=== PATIENT | male | born 1965 | race Caucasian/White ===

== ENCOUNTER 2021-12-27 13:08 | Inpatient (IN) | payer MEDICAID, SELFPAY ==
[2021-12-27 13:09] VITALS: BP 98/68; PULSE 89; RESP 18; TEMP 36.6; O2SAT 99; BMI 25.7
[2021-12-27 13:24] VITALS: BP 101/69; PULSE 80; RESP 16; RESP 18; O2SAT 96
--- NOTE | 2021-12-27 13:39 | EX.ED.SAOD ---
HPI History of Present Illness Chief Complaint: Substance Abuse Detail of Chief Complaint: Alcohol use for 40 years with 20-year sobriety that ended 15 years ago Informant: patient Onset/Context/Timing Onset: - (Patient has been drinking over the past 15 years) Context: Gradual Onset Timing: Continuous Quality: Multiple cans of beer with 1 to 2 pints of fireball Location: Not applicable Current Severity: Severe Maximum Severity: Severe Worsened by: Nothing specific Relieved by: Nothing Associated Symptoms Associated Symptoms: Positive for tremor (Patient has history of essential tremor.) and palpatations (When he cuts down on his drinking); Negative for vomiting*, diarrhea*, fever*, rash*, seizure, trauma, sex for drugs*, suicidal ideation, homicidal ideation or *HIV Risk Factors:Consider testing if last test > 6 months Narrative Narrative: Patient is a 56-year-old male. His niece works at [employer]. His knees recommended that he come to [place] for treatment of his alcoholism. He states he was sober for approximately 20 years. Resumed drinking 15 years ago. He drinks heavily. His last drink was on his way to the hospital. He denies headache, visual, ocular auditory symptoms. He denies trouble with speech or swallowing. He denies cardiac respiratory symptoms. He states his stomach feels queasy he denies vomiting or diarrhea. He does have an essential tremor. Tremors made worse when he drinks more. He denies blood in his urine. He denies black or maroon-colored stool. He does not bruise easily. He does have history of hypertension, and is on muscle relaxant for hip pain. He does admit to smoking. He understands he is not able to smoke at the hospital. Prior similar symptoms: Yes Recent Illness/Hospitalization: No [facility] Medical History Acute alcoholic pancreatitis Home Medications methocarbamol 500 mg tablet 500 mg PO BID PRN MUSCLE RELAXER 10/17/15 [History Last Taken 10/24/15 06:30] acetaminophen 325 mg tablet (Tylenol) 650 mg PO Q6H PRN PRN Pain 14 days 10/25/15 [Rx Last Taken Unknown] celecoxib 200 mg capsule 200 mg PO BID ##30 10/25/15 [Rx Last Taken Unknown] enoxaparin 40 mg/0.4 mL subcutaneous syringe 40 mg subcut DAILY@0600 ##20 10/25/15 [Rx Last Taken Unknown] sennosides 8.6 mg-docusate sodium 50 mg tablet (Stool Softener-Stimulant Laxative) 2 tab PO BID ##60 10/25/15 [Rx Last Taken Unknown] tramadol 50 mg tablet 50 - 100 mg PO Q6H PRN PRN Pain ##90 10/25/15 [Rx Last Taken Unknown] Allergy/AdvReac Type Severity Reaction Status Date / Time prednisone AdvReac Nausea/Vom/ Verified 12/27/21 13:11 Diarrhea Surgical History no surgical history no surgical history Social History (Updated 12/27/21 @ 13:[address] Jayro Hinton MD) household members: none Smoking Status: Heavy Smoker (>10/day) alcohol intake: current alcohol intake frequency: 3 or more drinks per day substance use type: does not use ROS ROS ED Constitutional Constitutional ED: Reports sweats; Denies chills, fever(s), subjective or weight loss Eyes Eyes: Denies blurry vision, change in vision or diplopia ENT ENT ED: Denies ear pain, rhinorrhea or sore throat Cardiovascular Cardiovascular: Reports palpitations and racing heartbeat; Denies chest pain, orthopnea or paroxysmal nocturnal dyspnea Respiratory/Chest Respiratory/Chest: Denies cough, dyspnea, dyspnea on exertion, orthopnea or paroxysmal nocturnal dyspnea Gastrointestinal Gastrointestinal: Reports abdominal pain and nausea; Denies constipation, diarrhea, melena or vomiting Genitourinary Genitourinary ED: Denies dysuria or urinary frequency Musculoskeletal Musculoskeletal: Reports other Details: He complains of right hip pain. ; Denies arthralgias, back pain, myalgias or neck pain Integumentary Denies Abrasions or rash Neurologic Neurologic: Denies headache(s), paresthesias or weakness Psychiatric Psychiatric: Reports anxiety; Denies depression or suicidal ideation Endocrine Endocrinology: Denies cold intolerance, heat intolerance, polydipsia or polyphagia Hematologic/Lymphatic Hematologic/Lymphatic: Denies easy bleeding or easy bruising EXAM Physical Exam Narrative Exam Narrative: Patient appears older than reported age. Const Vital Signs: 12/27/21 13:09 12/27/21 13:24 12/27/21 13:24 Temperature 98 F Temperature Source Temporal Pulse Rate 89 80 80 Respiratory Rate 18 16 18 Blood Pressure 98/68 101/69 101/69 Blood Pressure Mean 78 79 79 Pulse Ox 99 96 96 Oxygen Delivery Method Room Air Room Air Room Air Positive well nourished and well developed; Negative for obese, cachectic, contractures or unkempt General Appearance ED: well developed; Negative for unkempt, cachectic, contractures, NAD or pallor Nutritional Appearance: Negative for cachectic or obese HEENT Reports moist mucous membranes HEENT Narrative: Ears normal. Nares patent. Mucosa moist. Uvula midline. No erythema or exudate of posterior pharynx. Eyes PERRL and EOMs intact bilaterally Eyes Narrative: There is nystagmus with lateral gaze. There is no scleral icterus. Conjunctive is pink. Neck no lymphadenopathy, supple and no JVD Chest Wall inspection of chest normal and palpation of chest normal Resp normal respiratory effort and clear to auscultation bilaterally Cardio regular rate, regular rhythm, S1 normal heart sound, S2 normal heart sound and no murmurs GI soft to palpation, non-tender, non-distended and no masses Auscultation: hypoactive bowel sounds Back/Spine General Back: Negative for CVA tenderness Thoracic Spine / Upper Back: Negative for thoracic spinal tenderness Lumbar Spine / Lower Back: Negative for lumbar spinal tenderness Extremity Extremity Narrative: Extremities are unremarkable with no neurovascular compromise. General Extremety ED: Negative for edema or tenderness General Extremity: Negative for edema Neuro No oriented x3, No CN's II-XII intact bilaterally and No no sensory deficits noted Grover Coma Scale: document GCS findings Spontaneous Obeys Commands Oriented 15 Motor Exam: strength 5/5 throughout Psych mental status grossly normal and thought process normal Appearance: Negative for unkempt Skin General Skin Exam: Negative for jaundice or pallor Lesions: no lesions Rashes: no rashes MDM MDM MDM Narrative Medical decision making narrative: ED addiction order set was initiated. Patient was treated with Zofran and ODT and dicyclomine for his nausea and abdominal discomfort respectively. Clinically he is probably intoxicated. Will contact hospitalist for admission. Discharge Plan Dx/Rx/DC Orders Clinical Impression: Alcohol abuse with physiological dependence Disposition Disposition: [facility]
[2021-12-27] MEDS: Ondansetron ODT 4 MG Tablet PO (14:00)
[2021-12-27] MEDS: Dicyclomine 10 MG Capsule 20 MG PO (14:00)
[2021-12-27 14:15] LABS: Absolute Lymphocyte Count 1.86 X10^3/uL (0.83-4.51); Absolute Neutrophil Count 7.4 X10^3/uL (2.0-7.7); Basophil# 0.04 X10^3/uL; Basophil% 0.4 % (0-1); Eosinophil# 0.32 X10^3/uL; Eosinophils% 3.1 % (0-5); Hematocrit 42.3 % (40-54); Hemoglobin 14.5 g/dL (13.0-16.5); Lymphocyte # 1.86 X10^3/ul (0.83-4.51); Lymphocyte % 17.9 % (19-41); Mean Corp Hgb Conc 34.3 g/dL (32-36); Mean Corpuscular Hgb 33.1 pg (27.0-32.0); Mean Corpuscular Volume 96.6 fL (80-94); Mean Platelet Vol. 9.5 fl (6.2-12.0); Monocyte# 0.71 X10^3/uL; Monocyte% 6.8 % (0-10); NRBC Flagged by Analyzer 0 % (0-5); Neutrophil # 7.38 X10^3/uL (2.7-7.7); Neutrophil % 71.2 % (47-70); Platelet Count 295 K/mm3 (150-450); RBC Distribution Width CV 12.7 % (11.6-14.6); RBC Distribution Width SD 45.3 fl (35.1-43.9); Red Blood Count 4.38 M/mm3 (4.6-6.2); White Blood Count 10.4 K/mm3 (4.4-11.0)
[2021-12-27 14:30] LABS: ALB/GLOB Ratio 0.9 RATIO (0.9-2.4); AST(SGOT) 39 U/L (15-37); Alanine Aminotransfer ALT/SGPT 60 U/L (16-61); Albumin, Serum 3.7 g/dL (3.2-5.0); Alkaline Phosphatase 69 U/L (45-117); Anion Gap 10 (5-15); BUN 22 mg/dL (7-18); BUN/Creat Ratio 17.3 RATIO (10-20); Calcium,Total 10.1 mg/dL (8.5-10.1); Chloride 109 mmol/L (98-107); Creatinine, Serum 1.27 mg/dL (0.70-1.30); EST Glomerular Filtration Rate 62 mL/min (>60); Est Glom Filt Rate - Afr Amer 75 mL/min (>60); Estimated Creatinine Clearance 68.35 ml/min; Globulin 3.9 g/dL (2.2-4.2); Glucose 103 mg/dL (74-106); Protein, Total 7.6 g/dL (6.4-8.2); Sodium Level 139 mmol/L (136-145)
--- NOTE | 2021-12-27 14:37 | HP.PCM.HOS_ITS ---
HPI - General General Date of Admission: 12/27/21 Date of Service: 12/27/21 Chief Complaint: Alcohol detox services HPI Narrative FABIO MASON, is a 56 M who presents to the emergency room at [facility] requesting services for alcohol detox. Patient has a long history of alcoholism and has been drinking for 15 years after a period of sobriety. Patient states he drinks a 12 pack of beer a day +3-4 8 ounce bottles of Fireb all whiskey. Patient states that he had an episode of alcoholic pancreatitis 2 years ago and briefly stopped after that but resumed drinking. Patient has never been through DTs before, he is interested in doing inpatient detox after discharge from the hospital this time. Patient's medical problems include hypertension, osteoarthritis, and essential tremor. Patient also has a history of COPD and uses Spiriva. Patient is still smokes, he uses a nicotine patch but smokes while he has the patch on. Patient's last alcohol intake was right before he came in to the hospital, he states he drank several ounces of fireball. Patient has no complaints of any nervousness or tremor at this time. Patient will be admitted to [place] [id number] using the alcohol detox order set, he will be seen in consultation by addiction social media director. [facility] Medical History Acute alcoholic pancreatitis Asthma GERD (gastroesophageal reflux disease) Hypertension Smoker Home Medications acetaminophen 325 mg tablet (Tylenol) 650 mg PO Q6H PRN PRN Pain 14 days 10/25/15 [Rx Last Taken 12/27/21] atorvastatin 40 mg tablet 40 mg PO DAILY choleserol 12/27/21 [History Last Taken 12/27/21] diclofenac sodium 1 % topical gel 2 g topical 4X/DAY knee and hip pain 12/27/21 [History Last Taken Unknown] etodolac 400 mg tablet 400 mg PO QHS knee and hip pain 12/27/21 [History Last Taken 12/26/21] fenofibrate nanocrystallized 145 mg tablet 145 mg PO DAILY cholesterol 12/27/21 [History Last Taken 12/27/21] losartan 100 mg tablet 100 mg PO DAILY bp 12/27/21 [History Last Taken 12/27/21] nicotine 7 mg/24 hr daily transdermal patch 1 patch topical DAILY 12/27/21 [History Last Taken 12/27/21] propranolol 40 mg tablet 40 mg PO BID tremors 12/27/21 [History Last Taken 12/27/21] tiotropium bromide 18 mcg capsule with inhalation device (Spiriva with HandiHaler) 1 inh inhalation DAILY sob 12/27/21 [History Last Taken 12/27/21] tizanidine 4 mg tablet 4 mg PO QHS muscle relaxant 12/27/21 [History Last Taken 12/26/21] Allergy/AdvReac Type Severity Reaction Status Date / Time prednisone AdvReac Nausea/Vom/ Verified 12/27/21 13:11 Diarrhea Surgical History History of hip replacement, total Surgical History no surgical history Social History (Updated 12/27/21 @ 13:[address] Jayro Hinton MD) household members: none Smoking Status: Heavy Smoker (>10/day) alcohol intake: current alcohol intake frequency: 3 or more drinks per day substance use type: does not use ROS Constitutional Constitutional: Denies anorexia, change in weight, chills, fatigue, fever(s), malaise, night sweats or weakness Eyes Eyes: Denies blurry vision, change in eye color, change in vision, discharge from eye(s) or eye pain ENT HEENT: Denies abnormal hearing, dysphagia or ear pain Cardiovascular Cardiovascular: Reports dyspnea on exertion; Denies chest pain, claudication, edema or palpitations Respiratory/Chest Respiratory/Chest: Reports shortness of breath with exertion; Denies cough, hemoptysis or shortness of breath at rest Gastrointestinal Gastrointestinal: Denies abdominal pain, coffee ground emesis, constipation, diarrhea, dyspepsia, hematemesis, hematochezia, melena, nausea or vomiting Genitourinary Genitourinary: Denies dysuria, hematuria, urinary frequency, urinary hesitancy, urinary incontinence or urinary urgency Musculoskeletal Musculoskeletal: Denies back pain, joint pain, joint stiffness, joint swelling, myalgias or neck pain Neurologic Neurologic: Denies abnormal gait, abnormal speech, dizziness, focal weakness, headache(s), loss of vision, numbness, other visual disturbances, paresthesias, syncope or tingling Psychiatric Psychiatric: Denies anxiety, cognitive impairment, depression, irritability, mood swings or suicidal ideation Endocrine Endocrinology: Denies change in body appearance, cold intolerance, excessive sweating, heat intolerance, polydipsia or polyuria Hematologic/Lymphatic Hematologic/Lymphatic: Denies none, anemia, easy bleeding, easy bruising or lymphadenopathy Allergic/Immunologic Allergic/Immunologic: Denies rhinitis, urticaria, eczemia or asthma Vital Signs Vital Signs Vital Signs: 12/27/21 13:09 12/27/21 13:24 12/27/21 13:24 Temperature 98 F Temperature Source Temporal Pulse Rate 89 80 80 Respiratory Rate 18 16 18 Blood Pressure 98/68 101/69 101/69 Blood Pressure Mean 78 79 79 Pulse Ox 99 96 96 Oxygen Delivery Method Room Air Room Air Room Air Weight Weight: 83.461 kg Body Mass Index (BMI) 25.7 Physical Exam Const alert, oriented x3 and no apparent distress Constitutional Narrative: Patient appears stated age General Appearance: cooperative, well kempt and well developed Orientation / Consciousness: awake, oriented to person, oriented to place and oriented to time HEENT normocephalic, head/scalp atraumatic, hearing grossly normal bilaterally and moist oral mucous membranes Eyes PERRL, EOMs intact bilaterally and conjunctivae normal Neck nuchal rigidity, supple, no JVD, thyroid normal and no carotid bruits General: trachea midline Resp normal respiratory effort, no retractions, no use of accessory muscles and clear to auscultation bilaterally Resp Narrative: Breath sounds are distant bilaterally Auscultation: Negative for rales, rhonchi or wheezes Cardio regular rate, regular rhythm, S1 normal heart sound, S2 normal heart sound, no murmurs, no rub and no gallops GI normal to inspection, nondistended, normoactive bowel sounds, soft to palpation, non-tender and non-distended Extremity normal to inspection and no clubbing, cyanosis or edema Skin no rashes or lesions noted General Skin Exam: no breakdown Neuro oriented x3, CN's II-XII intact bilaterally, no focal motor deficits and no sensory deficits noted Sensorium / Orientation: awake, alert, oriented to person, oriented to place and oriented to time Speech: speech normal Psych affect normal Results Lab / Micro Data Result Diagrams: 12/27/21 14:00 12/27/21 14:00 Labs: Laboratory Results - last 24 hr 12/27/21 14:00: WBC 10.4, RBC 4.38 L, Hgb 14.5, Hct 42.3, MCV 96.6 H, MCH 33.1 H , MCHC 34.3, RDW Std Deviation 45.3 H, RDW Coeff of Lakhwinder 12.7, Plt Count 295, MPV 9.5, Immature Gran % (Auto) 0.600, Neut % (Auto) 71.2 H, Lymph % (Auto) 17.9 L, [place] % (Auto) 6.8, Eos % (Auto) 3.1, Baso % (Auto) 0.4, Absolute Neuts (auto) 7.4, Absolute Lymphs (auto) 1.86, Nucleated RBC % 0 12/27/21 14:00: Sodium 139, Potassium 4.0, Chloride 109 H, Carbon Dioxide 20.0 L , Anion Gap 10, BUN 22 H, Creatinine 1.27, Estim Creat Clear Calc 68.35, Est GFR (MDRD) Af Amer 75, Est GFR (MDRD) Non-Af 62, BUN/Creatinine Ratio 17.3, Glucose 103, Calcium 10.1, Total Bilirubin 0.40, AST 39 H, ALT 60, Alkaline Phosphatase 69, Total Protein 7.6, Albumin 3.7, Globulin 3.9, Albumin/Globulin Ratio 0.9 Assessment & Plan Assessment/Plan (1) Alcohol abuse with physiological dependence: PLAN: Plan 1. 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 Patient is on a nonsteroidal anti-inflammatory drug (Lodine) and takes Zanaflex at night. These will be continued here. #6 hyperlipidemia-patient is on fenofibrate and Lipitor Charges/Coding Visit Charges Inpatient E&M: 65392 Init Hosp L3
[2021-12-27 14:47] VITALS: BP 101/74; PULSE 71; RESP 14; TEMP 36.6; O2SAT 95
--- NOTE | 2021-12-27 14:48 | CM.ED ---
Addendum entered by Anita Scruggs 12/27/21 16:32: YING met with patient and provided him with [facility] Healthcare Provider Directory as he reports he has no PCP locally. Anita CARNEY Original Note: YING Note Referral Source: Case Find Referral Reason: RAMP YING met with patient. Patient voiced he came to the hospital for detox. Patient said that he drank on the way to the ED (Fireball Whiskey). Patient reports drinking 12 pack a day. Patient previously was in outpatient etoh detox at [facility]. Patient was alcohol free for 20 years and resumed drinking 15 years ago.Patient is drinking 12 pack of beer and 2 pints of fireball whiskey. Patient said that his plan is to go to inpatient AOD treatment at [facility] after discharge from detox program. Patient reports his niece works at [facility]. Patient said that his sister is coming to get his car keys today or tomorrow. RN was notified and RN said that patient's keys will be locked with his belongings till his sister comes to get the keys. Patient was in agreement with this plan. YING called Manuel and advised her of the admission to [facility]. Anita CARNEY
[2021-12-27 15:39] VITALS: BP 120/78; PULSE 68; RESP 20; TEMP 36.2; O2SAT 95
[2021-12-27 15:43] VITALS: BMI 26.1
[2021-12-27] MEDS: Phenobarbital 32.4 MG Tablet 64.8 MG PO ×2 (16:33→20:02)
[2021-12-27] MEDS: Gabapentin 300 MG Capsule PO (17:28)
[2021-12-27] MEDS: Etodolac 200 MG Capsule 400 MG PO (17:46)
[2021-12-27] MEDS: tiZANidine HCl 2 MG Tablet 4 MG PO (20:03)
[2021-12-27] MEDS: traZODone 100 MG Tablet PO (20:03)
[2021-12-27] MEDS: Propranolol 40 MG Tablet PO (20:03)
[2021-12-27 20:08] VITALS: BP 116/78; PULSE 70; RESP 16; TEMP 36.6
[2021-12-28] VITALS (10 sets, daily range): BP systolic 103–132; BP diastolic 70–83; PULSE 63–78; RESP 14–18; TEMP 36.5–36.7; O2SAT 94–98
[2021-12-28] MEDS: Phenobarbital 32.4 MG Tablet 64.8 MG PO ×6 (00:16→20:29)
[2021-12-28] MEDS: Ipratropium 0.5 MG/2.5 ML SOLUTION INHALATION ×3 (07:28→19:19)
[2021-12-28] MEDS: Fenofibrate 145 MG Tablet PO (08:17)
[2021-12-28] MEDS: Propranolol 40 MG Tablet PO ×2 (08:17→20:29)
[2021-12-28] MEDS: Folic Acid 1 MG Tablet PO (08:18)
[2021-12-28] MEDS: Etodolac 200 MG Capsule 400 MG PO ×2 (08:18→17:00)
[2021-12-28] MEDS: Thiamine Hydrochloride 100 MG Tablet PO (08:19)
[2021-12-28] MEDS: Losartan Potassium 100 MG Tablet PO (08:21)
--- NOTE | 2021-12-28 11:55 | PN.HOSP_ITS ---
Subjective Subjective Patient was seen and examined today, he is very sleepy but he has no overall complaints. Patient is not complaining of any muscle pain, nausea, or vomiting. Objective Data Objective Data Vital Signs: Vital Signs Temp Pulse Resp BP Pulse Ox 98.1 F 73 14 107/83 H 94 12/28/21 08:31 12/28/21 08:31 12/28/21 08:31 12/28/21 08:31 12/28/21 08:31 Oxygen Flow Rate (L/min) 0 Oxygen Delivery Method Room Air Weight: 87.4 kg Body Mass Index (BMI) 26.1 Intake & Output: Intake and Output for Last 24 Hours 12/26/21 12/27/21 12/28/21 23:59 23:59 23:59 Intake Total 1300 / 1300 Balance 1300 / 1300 Lab / Micro Data Result Diagrams: 12/27/21 14:00 12/27/21 14:00 Labs: Laboratory Results - last 24 hr 12/27/21 14:00: WBC 10.4, RBC 4.38 L, Hgb 14.5, Hct 42.3, MCV 96.6 H, MCH 33.1 H , MCHC 34.3, RDW Std Deviation 45.3 H, RDW Coeff of Lakhwinder 12.7, Plt Count 295, MPV 9.5, Immature Gran % (Auto) 0.600, Neut % (Auto) 71.2 H, Lymph % (Auto) 17.9 L, [place] % (Auto) 6.8, Eos % (Auto) 3.1, Baso % (Auto) 0.4, Absolute Neuts (auto) 7.4, Absolute Lymphs (auto) 1.86, Nucleated RBC % 0 12/27/21 14:00: Sodium 139, Potassium 4.0, Chloride 109 H, Carbon Dioxide 20.0 L , Anion Gap 10, BUN 22 H, Creatinine 1.27, Estim Creat Clear Calc 68.35, Est GFR (MDRD) Af Amer 75, Est GFR (MDRD) Non-Af 62, BUN/Creatinine Ratio 17.3, Glucose 103, Calcium 10.1, Total Bilirubin 0.40, AST 39 H, ALT 60, Alkaline Phosphatase 69, Total Protein 7.6, Albumin 3.7, Globulin 3.9, Albumin/Globulin Ratio 0.9 12/27/21 14:00: Ethyl Alcohol 15.0 06/25/22 11:30: Ur Drug Screen Comment Physical Exam Const alert, oriented x3 and no apparent distress Constitutional Narrative: Patient appears stated age General Appearance: cooperative, well kempt and well developed Orientation / Consciousness: awake, oriented to person, oriented to place and oriented to time HEENT normocephalic, head/scalp atraumatic, hearing grossly normal bilaterally and saniya st oral mucous membranes Eyes PERRL, EOMs intact bilaterally and conjunctivae normal Neck nuchal rigidity, supple, no JVD, thyroid normal and no carotid bruits General: trachea midline Resp normal respiratory effort, no retractions, no use of accessory muscles and clear to auscultation bilaterally Resp Narrative: Breath sounds are distant bilaterally Auscultation: Negative for rales, rhonchi or wheezes Cardio regular rate, regular rhythm, S1 normal heart sound, S2 normal heart sound, no murmurs, no rub and no gallops GI normal to inspection, nondistended, normoactive bowel sounds, soft to palpation, non-tender and non-distended Extremity normal to inspection and no clubbing, cyanosis or edema Skin no rashes or lesions noted General Skin Exam: no breakdown Neuro oriented x3, CN's II-XII intact bilaterally, no focal motor deficits and no sensory deficits noted Sensorium / Orientation: awake, alert, oriented to person, oriented to place and oriented to time Speech: speech normal Psych affect normal Assessment & Plan Assessment/Plan (1) Alcohol abuse with physiological dependence: PLAN: Plan 1. 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 Patient is on a nonsteroidal anti-inflammatory drug (Lodine) and takes Zanaflex at night. These will be continued here. #6 hyperlipidemia-patient is on fenofibrate and Lipitor Charges/Coding Visit Charges Inpatient E&M: 01736 Subs Hosp L2
[2021-12-28 11:56] LABS: Amphetamine Urine VISTA NEGATIVE (<1000 ng/mL); Barbiturate Urine VISTA POSITIVE (< 200 ng/mL); Benzodiazepine Urine VISTA NEGATIVE (< 200 ng/mL); Cocaine Urine VISTA NEGATIVE (< 300 ng/mL); Ecstacy Urine VISTA NEGATIVE (< 500 ng/mL); Methadone Urine VISTA NEGATIVE (< 300 ng/mL); PCP Urine VISTA NEGATIVE (< 25 ng/mL); THC Urine VISTA NEGATIVE (< 50 ng/mL); Vista UDS pH Range 6
--- NOTE | 2021-12-28 20:21 | NURSING ---
Pt refusing to have an iv inserted. This RN explained to pt that usually we have an iv in pt's with etoh withdrawal d/t risk of seizures. Pt states he understands but is still refusing an iv.
[2021-12-28] MEDS: tiZANidine HCl 2 MG Tablet 4 MG PO (20:29)
[2021-12-28] MEDS: Atorvastatin Calcium 40 MG Tablet PO (20:29)
[2021-12-29 00:54] VITALS: BP 104/68; PULSE 66; RESP 18; TEMP 36.6; O2SAT 97
[2021-12-29] MEDS: Phenobarbital 32.4 MG Tablet 64.8 MG PO ×3 (00:57→08:49)
[2021-12-29] MEDS: traZODone 100 MG Tablet PO (01:01)
[2021-12-29 04:34] VITALS: BP 100/55; PULSE 63; RESP 18; TEMP 36.4; O2SAT 93
[2021-12-29] MEDS: Etodolac 200 MG Capsule 400 MG PO ×2 (08:49→16:58)
[2021-12-29] MEDS: Thiamine Hydrochloride 100 MG Tablet PO (08:49)
[2021-12-29] MEDS: Folic Acid 1 MG Tablet PO (08:49)
[2021-12-29] MEDS: Fenofibrate 145 MG Tablet PO (08:49)
[2021-12-29] MEDS: Losartan Potassium 100 MG Tablet PO (08:49)
[2021-12-29] MEDS: Propranolol 40 MG Tablet PO ×2 (08:49→22:37)
[2021-12-29 08:51] VITALS: BP 112/67; PULSE 72; RESP 16; TEMP 36.6; O2SAT 96
[2021-12-29 11:52] VITALS: BP 102/72; PULSE 72; RESP 16; TEMP 36.7; O2SAT 96
[2021-12-29] MEDS: guaiFENesin 1,200 MG Tablet 1200 MG PO ×2 (11:56→22:43)
--- NOTE | 2021-12-29 12:35 | PN.HOSP_ITS ---
Subjective Subjective Patient was seen and examined today, he still appears sleepy, he states that he feels he has some sputum to cough up but is too thick. Patient denies any fevers or chills. Objective Data Objective Data Vital Signs: Vital Signs Temp Pulse Resp BP Pulse Ox 98.1 F 72 16 102/72 96 12/29/21 11:52 12/29/21 11:52 12/29/21 11:52 12/29/21 11:52 12/29/21 11:52 Oxygen Flow Rate (L/min) 0 Oxygen Delivery Method Room Air Weight: 87.4 kg Body Mass Index (BMI) 26.1 Intake & Output: Intake and Output for Last 24 Hours 12/27/21 12/28/21 12/29/21 23:59 23:59 23:59 Intake Total 1300 / 1300 1000 / 1000 900 / 900 Balance 1300 / 1300 1000 / 1000 900 / 900 Lab / Micro Data Result Diagrams: 12/27/21 14:00 12/27/21 14:00 Physical Exam Const alert, oriented x3 and no apparent distress Constitutional Narrative: Patient appears stated age General Appearance: cooperative, well kempt and well developed Orientation / Consciousness: awake, oriented to person, oriented to place and oriented to time HEENT normocephalic, head/scalp atraumatic, hearing grossly normal bilaterally and moist oral mucous membranes Eyes PERRL, EOMs intact bilaterally and conjunctivae normal Neck nuchal rigidity, supple, no JVD, thyroid normal and no carotid bruits General: trachea midline Resp normal respiratory effort, no retractions, no use of accessory muscles and clear to auscultation bilaterally Resp Narrative: Breath sounds are distant bilaterally Auscultation: Negative for rales, rhonchi or wheezes Cardio regular rate, regular rhythm, S1 normal heart sound, S2 normal heart sound, no murmurs, no rub and no gallops GI normal to inspection, nondistended, normoactive bowel sounds, soft to palpation, non-tender and non-distended Extremity normal to inspection and no clubbing, cyanosis or edema Skin no rashes or lesions noted General Skin Exam: no breakdown Neuro oriented x3, CN's II-XII intact bilaterally, no focal motor deficits and no sensory deficits noted Sensorium / Orientation: awake, alert, oriented to person, oriented to place and oriented to time Speech: speech normal Psych affect normal Assessment & Plan Assessment/Plan (1) Alcohol abuse with physiological dependence: PLAN: Plan 1. 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 Patient is on a nonsteroidal anti-inflammatory drug (Lodine) and takes Zanaflex at night. These will be continued here. #6 hyperlipidemia-patient is on fenofibrate and Lipitor Charges/Coding Visit Charges Inpatient E&M: 79167 Subs Hosp L2
[2021-12-29] MEDS: Phenobarbital 32.4 MG Tablet PO ×2 (13:39→22:37)
[2021-12-29 16:59] VITALS: BP 95/68; PULSE 77; RESP 18; TEMP 36.4; O2SAT 100
[2021-12-29 22:34] VITALS: BP 119/74; PULSE 79; RESP 20; TEMP 36.4; O2SAT 99
[2021-12-29] MEDS: Atorvastatin Calcium 40 MG Tablet PO (22:37)
[2021-12-29] MEDS: tiZANidine HCl 2 MG Tablet 4 MG PO (22:37)
[2021-12-30 05:42] VITALS: BP 104/60; PULSE 83; RESP 18; TEMP 36.5; O2SAT 97
[2021-12-30] MEDS: Phenobarbital 32.4 MG Tablet PO ×2 (05:44→13:41)
[2021-12-30] MEDS: Gabapentin 300 MG Capsule PO (06:00)
[2021-12-30 08:19] VITALS: BP 119/79; PULSE 76; RESP 16; TEMP 36.5; O2SAT 95
[2021-12-30] MEDS: Propranolol 40 MG Tablet PO (08:22)
[2021-12-30] MEDS: Thiamine Hydrochloride 100 MG Tablet PO (08:22)
[2021-12-30] MEDS: Etodolac 200 MG Capsule 400 MG PO (08:23)
[2021-12-30] MEDS: Folic Acid 1 MG Tablet PO (08:23)
[2021-12-30] MEDS: Fenofibrate 145 MG Tablet PO (08:23)
[2021-12-30] MEDS: Losartan Potassium 100 MG Tablet PO (08:23)
[2021-12-30] MEDS: guaiFENesin 1,200 MG Tablet 1200 MG PO (08:23)
--- NOTE | 2021-12-30 10:36 | ADDICTION ---
TW met with pt to discuss transportation and d/c. Pt's sister will be transporting pt to [facility] for residential treatment. TW communicated that to nurse and let nurse Shyann know that sister is his emergency contact and the number on file is correct. All other documentation (ASAM, AUDIT, DUDIT, D/C Summary, CARMELLA, MSE) is in paper chart and was completed over the weekend by LOLITA Grewal. [facility] is aware of admission and ready for admission as soon as pt is d/c.
--- NOTE | 2021-12-30 10:47 | DS.PCM_ITS ---
Providers Date of Admission: 12/27/21 Date of Discharge: 12/30/21 Primary Care Physician: No Primary Care Phys Reason For Visit: ALCOHOL DETOX Diagnosis Discharge Diagnosis (1) Alcohol abuse with physiological dependence: Status: Acute Code(s): F10.20 - Alcohol dependence, uncomplicated Medications at Discharge Home Medications acetaminophen 325 mg tablet (Tylenol) 650 mg PO Q6H PRN PRN Pain 14 days 10/25/15 atorvastatin 40 mg tablet 40 mg PO DAILY choleserol 12/27/21 diclofenac sodium 1 % topical gel 2 g topical 4X/DAY knee and hip pain 12/27/21 etodolac 400 mg tablet 400 mg PO QHS knee and hip pain 12/27/21 fenofibrate nanocrystallized 145 mg tablet 145 mg PO DAILY cholesterol 12/27/21 losartan 100 mg tablet 100 mg PO DAILY bp 12/27/21 nicotine 7 mg/24 hr daily transdermal patch 1 patch topical DAILY 12/27/21 propranolol 40 mg tablet 40 mg PO BID tremors 12/27/21 tiotropium bromide 18 mcg capsule with inhalation device (Spiriva with HandiHaler) 1 inh inhalation DAILY sob 12/27/21 tizanidine 4 mg tablet 4 mg PO QHS muscle relaxant 12/27/21 Hospital Course Operations None Procedures None Summary of Care Provided Minutes Spent on Discharge: 36 Hospital Course: Mr. Boucher is a 56-year-old white male who presents emergency department [facility] [place] on 12/27/2021 requesting alcohol detox. The patient reportedly had a long history of alcoholism and had been drinking for 15+ years after a period of sobriety. He indicated on admission he was drinking approximately a sixpack of beer daily +3 to 4 8 ounce bottles of fireball whiskey. He indicated he had a episode of alcoholic induced pancreatitis 2 years ago and stopped briefly after that point time but resumed drinking fairly quickly. He was not in acute withdrawal upon presentation and was admitted to [facility] and placed on a phenobarbital taper along with supportive medications. His laboratory data on admission was overall unremarkable. His toxicology screen on admission was positive for barbiturates however this was given prior to him supplying a urine at admission. He did well overall with his alcohol detox and was evaluated by [facility]. Upon evaluation he indicated he wanted to perform residential treatment. He was deemed stable for discharge on 12/30/2021 and [facility] for residential treatment. He does have a history of avascular necrosis and has femoral head arthritis and he would like to follow-up after his alcohol rehab has completed and we did give him information to see Dr. Manley as he did his previous hip replacement. Discharge diagnoses: Acute alcohol withdraw Alcohol dependence COPD Hyperlipidemia Hypertension Chronic hip and knee pain Tobacco abuse Physical Exam Const alert, oriented x3, no apparent distress and no limitations Constitutional Narrative: Slightly overweight, middle-aged, white male, appears older than stated age, sitting up in bed, appears comfortable nontoxic General Appearance: cooperative, comfortable, well kempt, well developed and appears older than stated age Orientation / Consciousness: awake, oriented to person, oriented to place and oriented to time Exam Limitations: no limitations Nutritional Appearance: overweight HEENT normocephalic, head/scalp atraumatic, hearing grossly normal bilaterally and moist oral mucous membranes HEENT Narrative: Edentulous, Mallampati 2, no thrush Eyes PERRL, EOMs intact bilaterally and conjunctivae normal Eyes Narrative: No scleral icterus Neck no lymphadenopathy, supple, no JVD and no carotid bruits Neck Narrative: Trachea midline, no thyroid enlargement Resp normal respiratory effort, no retractions, no use of accessory muscles and clear to auscultation bilaterally Resp Narrative: Diminished but clear Auscultation: Negative for crackles, rales, rhonchi or wheezes Cardio regular rate, regular rhythm, S1 normal heart sound, S2 normal heart sound, no murmurs, no rub, no gallops, no clicks and no JVD GI normal to inspection, nondistended, normoactive bowel sounds, soft to palpation, non-tender and non-distended; Negative for hepatosplenomegaly Extremity no clubbing, cyanosis or edema Extremity Narrative: 2+ pedal pulses Skin no rashes or lesions noted, no wounds, skin turgor normal and no jaundice Neuro oriented x3, CN's II-XII intact bilaterally, moves all extremities, no focal motor deficits and no sensory deficits noted Sensorium / Orientation: awake and alert Speech: speech normal Motor Exam: strength 5/5 throughout Psych affect normal Weight / BMI Weight Weight: 87.4 kg Body Mass Index (BMI) 26.1 ABG / Lab / Microbiology Data Result Diagrams: 12/27/21 14:00 12/27/21 14:00 D/C Instructions Discharge Diet: Low fat / Low cholesterol Discharge Activity: Return to Normal Activity Meaningful Use Info Meaningful Use Diagnoses (Choose all that apply): None applicable Discharge Plan Admission Admit Date/Time: 12/27/21 15:13 Primary Reason for Your Visit: EtOH Detox Attending Provider: Kaitlynn Jarrett Primary Care Provider: Care Physician,No Primary Consulting Providers: Dank Daley Discharge Orders/Prescriptions Prescriptions: Continued acetaminophen [Tylenol] 325 MG tablet 650 mg PO Q6H PRN PRN (Reason: Pain) 14 Days 0RF Label Comments: pain nicotine 7 mg/24 hr patch 24 hour 1 patch topical DAILY Label Comments: APPLY ONE PATCH ONCE A DAY DIRECTED Spiriva with HandiHaler 18 mcg capsule, w/inhalation device 1 inh INHALATION DAILY Label Comments: INHALE THE CONTENTS OF 1 CAPSULE BY MOUTH EVERY DAY atorvastatin 40 mg tablet 40 mg PO DAILY Label Comments: TAKE ONE TABLET BY MOUTH DAILY tizanidine 4 mg tablet 4 mg PO QHS Label Comments: TAKE ONE TABLET BY MOUTH AT BEDTIME propranolol 40 mg tablet 40 mg PO BID Label Comments: TAKE ONE TABLET BY MOUTH TWO TIMES A DAY FOR HAND TREMORS etodolac 400 mg tablet 400 mg PO QHS losartan 100 mg tablet 100 mg PO DAILY Label Comments: TAKE ONE TABLET BY MOUTH EVERY DAY fenofibrate nanocrystallized 145 mg tablet 145 mg PO DAILY Label Comments: TAKE ONE TABLET BY MOUTH EVERY DAY diclofenac sodium 1 % gel 2 g TOPICAL 4X/DAY Label Comments: apply 2 grams externally to affected areas 4 times daily. do not exceed 8 g shiela per day Referrals / Follow Up: Robby Manley MD [STAFF PHYSICIAN] - See Referral Note (When able for Hip) Care Physician,No Primary [Primary Care Provider] - Disposition Disposition (needs filled in before D/C Order can be placed): Inpatient Rehab Unit/Facility Charges/Coding Visit Charges Inpatient E&M: 09257 Disch Hosp
[2021-12-30 13:42] VITALS: BP 117/72; PULSE 75; RESP 18; TEMP 36.6; O2SAT 95
== END 2021-12-30 14:25 | disposition other institution (70) | DRG 772 ==
LOC: ED 13:46 → MS3 15:23
PROVIDERS: Admitting Provider Internal Medicine; Emergency Provider Emergency Medicine; Visit Provider Internal Medicine
DX: F10.20 Alcohol dependence, uncomplicated (principal); E78.5 Hyperlipidemia, unspecified; J44.9 Chronic obstructive pulmonary disease, unspecified; I10 Essential (primary) hypertension; G25.0 Essential tremor; J45.909 Unspecified asthma, uncomplicated; K21.9 Gastro-esophageal reflux disease without esophagitis; F17.200 Nicotine dependence, unspecified, uncomplicated; Z79.1 Long term (current) use of non-steroidal anti-inflammatories (NSAID); Z79.01 Long term (current) use of anticoagulants; Z79.899 Other long term (current) drug therapy; Z96.642 Presence of left artificial hip joint
CPT/HCPCS: 80053; 80307; 82077; 85025; 94640; 97802; 99283; 99406; A4216

== ENCOUNTER → 2022-08-07 | Outpatient (CLI) | payer MEDICAID, SELFPAY ==
[2022-08-07 16:57] LABS: Absolute Neutrophil Count 5.1 X10^3/uL (2.0-7.7); Basophil# 0.02 X10^3/uL; Basophil% 0.2 % (0-1); Eosinophil# 0.35 X10^3/uL; Eosinophils% 4.2 % (0-5); Hematocrit 41.1 % (40-54); Hemoglobin 13.2 g/dL (13.0-16.5); Lymphocyte % 24.1 % (19-41); Mean Corp Hgb Conc 32.1 g/dL (32-36); Mean Corpuscular Hgb 30.1 pg (27.0-32.0); Mean Corpuscular Volume 93.6 fL (80-94); Mean Platelet Vol. 9.5 fl (6.2-12.0); Monocyte# 0.74 X10^3/uL; Monocyte% 8.9 % (0-10); NRBC Flagged by Analyzer 0 % (0-5); Neutrophil # 5.14 X10^3/uL (2.7-7.7); Neutrophil % 62.1 % (47-70); Platelet Count 374 K/mm3 (150-450); RBC Distribution Width CV 12.6 % (11.6-14.6); RBC Distribution Width SD 43.3 fl (35.1-43.9); Red Blood Count 4.39 M/mm3 (4.6-6.2); White Blood Count 8.3 K/mm3 (4.4-11.0)
[2022-08-07 18:01] LABS: AST(SGOT) 22 U/L (15-37); Alanine Aminotransfer ALT/SGPT 36 U/L (16-61); Albumin, Serum 3.9 g/dL (3.2-5.0); Alkaline Phosphatase 61 U/L (45-117); Amylase 88 U/L (25-115); Anion Gap 9 (5-15); BUN 14 mg/dL (7-18); BUN/Creat Ratio 12.6 RATIO (10-20); Calcium,Total 10.7 mg/dL (8.5-10.1); Chloride 103 mmol/L (98-107); Cholesterol 114 mg/dL (200); Creatinine, Serum 1.11 mg/dL (0.70-1.30); EST Glomerular Filtration Rate 72 mL/min (>60); Est Glom Filt Rate - Afr Amer 87 mL/min (>60); Globulin 3.8 g/dL (2.2-4.2); Glucose 109 mg/dL (74-106); High Density Lipoprotein 43 mg/dL; Lipase 182 U/L (73-393); Potassium 3.8 mmol/L (3.5-5.1); Protein, Total 7.7 g/dL (6.4-8.2); Sodium Level 140 mmol/L (136-145); Triglycerides 99 mg/dL; Very Low Density Lipoprotein 20 mg/dL (5-40)
[2022-08-12 10:32] LABS: Vitamin D,25 Hydroxy 53.2 ng/mL
== END | disposition home or self-care (01) ==
PROVIDERS: Internal Medicine; PCP Internal Medicine; Referring Provider Nurse Practitioner Family; Visit Provider Nurse Practitioner Family
DX: R10.2 Pelvic and perineal pain (principal); E55.9 Vitamin D deficiency, unspecified
CPT/HCPCS: 36415; 80053; 80061; 82150; 82306; 83690; 85025

== ENCOUNTER → 2023-04-01 | Outpatient (CLI) | payer MEDICAID, SELFPAY ==
[2023-04-01 12:13] LABS: Absolute Lymphocyte Count 1.71 X10^3/uL (0.83-4.51); Basophil# 0.05 X10^3/uL; Basophil% 0.8 % (0-1); Eosinophil# 0.59 X10^3/uL; Eosinophils% 9.7 % (0-5); Hematocrit 42.9 % (40-54); Hemoglobin 13.9 g/dL (13.0-16.5); Lymphocyte # 1.71 X10^3/ul (0.83-4.51); Lymphocyte % 28.2 % (19-41); Mean Corp Hgb Conc 32.4 g/dL (32-36); Mean Corpuscular Hgb 30.2 pg (27.0-32.0); Mean Corpuscular Volume 93.3 fL (80-94); Mean Platelet Vol. 10.4 fl (6.2-12.0); Monocyte# 0.73 X10^3/uL; NRBC Flagged by Analyzer 0 % (0-5); Neutrophil # 2.96 X10^3/uL (2.7-7.7); Platelet Count 321 K/mm3 (150-450); RBC Distribution Width CV 13.4 % (11.6-14.6); RBC Distribution Width SD 45.9 fl (35.1-43.9); White Blood Count 6.1 K/mm3 (4.4-11.0)
[2023-04-01 12:56] LABS: AST(SGOT) 23 U/L (15-37); Alanine Aminotransfer ALT/SGPT 37 U/L (16-61); Albumin, Serum 3.7 g/dL (3.2-5.0); Alkaline Phosphatase 75 U/L (45-117); Anion Gap 4 (5-15); BUN 14 mg/dL (7-18); BUN/Creat Ratio 14.4 RATIO (10-20); Calcium,Total 9.3 mg/dL (8.5-10.1); Chloride 107 mmol/L (98-107); Cholesterol 165 mg/dL (200); Creatinine, Serum 0.97 mg/dL (0.70-1.30); EST Glomerular Filtration Rate 84 mL/min (>60); Est Glom Filt Rate - Afr Amer 102 mL/min (>60); Globulin 3.8 g/dL (2.2-4.2); Glucose 97 mg/dL (74-106); High Density Lipoprotein 40 mg/dL; Potassium 4.1 mmol/L (3.5-5.1); Protein, Total 7.5 g/dL (6.4-8.2); Sodium Level 139 mmol/L (136-145); Triglycerides 212 mg/dL; Very Low Density Lipoprotein 42 mg/dL (5-40)
== END | disposition home or self-care (01) ==
LOC: BIMLAB 09:13
PROVIDERS: PCP Internal Medicine; Referring Provider Internal Medicine; Visit Provider Internal Medicine
DX: E78.2 Mixed hyperlipidemia (principal); I10 Essential (primary) hypertension
CPT/HCPCS: 36415; 80053; 80061; 85025

== ENCOUNTER → 2023-04-09 | Outpatient (CLI) | payer MEDICAID, SELFPAY | END | disposition home or self-care (01) | LOC: LABSPEC 13:45 | PROVIDERS: PCP Internal Medicine; Visit Provider Internal Medicine | DX: Z11.52 Encounter for screening for COVID-19 (principal) | CPT/HCPCS: 87635 ==

== ENCOUNTER → 2023-04-14 | Outpatient (CLI) | payer MEDICAID, SELFPAY ==
--- NOTE | 2023-04-15 08:24 | PFT ---
INTRODUCTION: The patient is a 58-year-old male who presents for pulmonary function studies secondary to a diagnosis of COPD. Respiratory therapy reported good patient effort. Bronchodilators were used during testing. INTERPRETATION: Forced expiration spirometry demonstrates the presence of a moderate large airways obstructive ventilatory defect. There was a significant response to aerosolized bronchodilators. Spirograms are of good quality but do not plateau indicating slow emptying of the lungs. Body plethysmography was performed and revealed evidence of hyperinflation and air trapping. Diffusing capacity by single breath CO is reduced at 63% of predicted. IMPRESSION: Partially reversible moderate large airways obstructive ventilatory defect with associated hyperinflation, air trapping and symmetric reduction in diffusing capacity.
== END | disposition home or self-care (01) ==
LOC: PSN 08:38
PROVIDERS: PCP Internal Medicine; Referring Provider Internal Medicine; Visit Provider Internal Medicine
DX: J44.9 Chronic obstructive pulmonary disease, unspecified (principal); F17.200 Nicotine dependence, unspecified, uncomplicated
CPT/HCPCS: 94060; 94726; 94729

== ENCOUNTER 2024-02-09 23:12 | Emergency (ER) | payer SELFPAY ==
[2024-02-09 23:13] VITALS: BP 121/91; PULSE 94; RESP 20; TEMP 36.2; O2SAT 97; BMI 26.9
[2024-02-09 23:28] VITALS: O2SAT 96
--- NOTE | 2024-02-09 23:34 | RAD_ITS ---
INDICATION: cough EXAMINATION/TECHNIQUE: X-RAY - XR Chest 2 Views COMPARISON: No relevant prior comparison study available FINDINGS: LINES/DEVICES: None. LUNGS: No consolidation, edema or effusion. No pneumothorax. MEDIASTINUM AND CARDIOVASCULAR STRUCTURES: Cardiac silhouette not enlarged. Central airways and mediastinal contour are unremarkable. BONES AND SOFT TISSUES: Unremarkable. RAD/Chest PA and Lateral IMPRESSION: No radiographic evidence of acute cardiopulmonary disease. Electronically Signed: Wendy West MD at 0:20 EDT ,
[2024-02-09] MEDS: Ipratropium/Albuterol Sulfate 3 ML AMPUL.NEB INHALATION (23:41)
[2024-02-09] MEDS: Albuterol 2.5 MG/3 ML VIAL.NEB. INHALATION (23:41)
[2024-02-09 23:42] VITALS: PULSE 82; RESP 12
[2024-02-09 23:46] LABS: Absolute Lymphocyte Count 2.02 X10^3/uL (0.83-4.51); Absolute Neutrophil Count 4.9 X10^3/uL (2.0-7.7); Basophil# 0.06 X10^3/uL; Basophil% 0.7 % (0-1); Eosinophil# 0.52 X10^3/uL; Eosinophils% 6.3 % (0-5); Hematocrit 41.5 % (40-54); Hemoglobin 13.9 g/dL (13.0-16.5); Lymphocyte # 2.02 X10^3/ul (0.83-4.51); Lymphocyte % 24.5 % (19-41); Mean Corp Hgb Conc 33.5 g/dL (32-36); Mean Corpuscular Hgb 29.8 pg (27.0-32.0); Mean Corpuscular Volume 89.1 fL (80-94); Mean Platelet Vol. 9.5 fl (6.2-12.0); Monocyte# 0.73 X10^3/uL; Monocyte% 8.8 % (0-10); NRBC Flagged by Analyzer 0 % (0-5); Neutrophil # 4.88 X10^3/uL (2.7-7.7); Neutrophil % 59.1 % (47-70); Platelet Count 366 K/mm3 (150-450); RBC Distribution Width CV 12.8 % (11.6-14.6); RBC Distribution Width SD 41.6 fl (35.1-43.9); Red Blood Count 4.66 M/mm3 (4.6-6.2); White Blood Count 8.3 K/mm3 (4.4-11.0)
[2024-02-09] MEDS: MethylPREDNISolone 125 MG/2 ML Vial IV (23:49)
[2024-02-10 00:09] LABS: Anion Gap 8 (5-15); BUN 23 mg/dL (7-18); BUN/Creat Ratio 22.1 RATIO (10-20); Calcium,Total 9.2 mg/dL (8.5-10.1); Chloride 108 mmol/L (98-107); Creatinine, Serum 1.04 mg/dL (0.70-1.30); EST Glomerular Filtration Rate 77 mL/min (>60); Est Glom Filt Rate - Afr Amer 94 mL/min (>60); Estimated Creatinine Clearance 82.91 ml/min; Glucose 123 mg/dL (74-106); Magnesium 1.7 mg/dL (1.6-2.6); Potassium 3.7 mmol/L (3.5-5.1); Sodium Level 139 mmol/L (136-145)
--- NOTE | 2024-02-10 00:44 | EX.ED.DYSGE1 ---
HPI History of Present Illness Chief Complaint: Shortness of Breath Informant: patient Narrative Narrative: Patient is a 59-year-old male with past medical history of hypertension COPD hyperlipidemia and continues to smoke. He states that at work he is exposed to multiple dust particles. He states that this evening while at work he had increasing shortness of breath that was not improving with his rescue medication and therefore he comes in for evaluation [facility] Medical History Restless leg Hypercholesteremia Drug abuse Arthritis GERD (gastroesophageal reflux disease) Asthma Smoker Hypertension Alcohol abuse with physiological dependence Acute alcoholic pancreatitis Home Medications ?Medication ?Instructions ?Recorded ?Last Taken ?Type albuterol sulfate 2.5 mg/3 mL 2.5 mg (3 mL) inhalation Q4H PRN 04/09/23 Unknown Rx (0.083 %) solution for nebulization shortness of breath or wheezing #180 mL nebulizers #1 ea 04/09/23 Unknown Rx ipratropium 0.5 mg-albuterol 3 mg 3 ml inhalation Q4H PRN shortness 04/15/23 Unknown Rx (2.5 mg base)/3 mL nebulization of breath or wheezing #90 mL soln albuterol sulfate 90 mcg/actuation 2 puff inhalation Q6H PRN 09/30/23 Unknown Rx aerosol inhaler shortness of breath or wheezing #8.5 grams atorvastatin 40 mg tablet 40 mg PO DAILY choleserol #90 tabs 09/30/23 Unknown Rx blood pressure monitor #1 ea 09/30/23 Unknown Rx bupropion HCl (smoking deter) 150 150 mg PO DAILY #180 tabs 09/30/23 Unknown Rx mg tablet,12 hr sustained-release(smoking deterrent) ropinirole 0.5 mg tablet 0.5 mg PO QHS #90 tabs 09/30/23 Unknown Rx fluticasone fur. 200 mcg-umeclid 1 inh inhalation DAILY #60 ea 11/16/23 Unknown Rx 62.5 mcg-vilant 25 mcg inhalat.powder (Trelegy Ellipta) prednisone 20 mg tablet 40 mg (2 x 20 mg) PO DAILY 7 days 02/10/24 Unknown Rx #14 tabs Allergy/AdvReac Type Severity Reaction Status Date / Time prednisone AdvReac Nausea/Vom/ Verified 02/09/24 23:13 Diarrhea Family History Uncle Cancer lung Father Cancer Surgical History History of hernia surgery History of hip replacement, total Social History (Updated 09/30/23 @ 09:[address] Toshia Somers MD) household members: other details: sober house living current occupational status: unemployed Smoking Status: Current every day smoker tobacco type: cigarettes Electronic Cigarette Use: not used quit status: considering quitting alcohol intake: former year quit: 2021 substance use type: former substance user Date of last use: 2021, crack/cocaine, amphetamines and opiates what type of physical activity do you participate in: none do you feel safe at home: Yes ROS ROS ED Constitutional Constitutional ED: Denies chills or fever(s) ENT ENT ED: Denies sore throat Cardiovascular Cardiovascular: Denies chest pain Respiratory/Chest Respiratory/Chest: Reports cough and dyspnea Gastrointestinal Gastrointestinal: Denies abdominal pain, diarrhea, nausea or vomiting Genitourinary Genitourinary ED: Denies dysuria Musculoskeletal Musculoskeletal: Denies myalgias Integumentary Denies rash Neurologic Neurologic: Denies headache(s) Hematologic/Lymphatic Hematologic/Lymphatic: Denies easy bleeding or easy bruising EXAM Physical Exam Const Vital Signs: 02/09/24 23:13 02/09/24 23:28 02/09/24 23:42 Temperature 97.1 F L Temperature Source Temporal Pulse Rate 94 82 Respiratory Rate 20 H 12 Respiratory Effort Short of Breath Respiratory Depth Normal Respiratory Pattern Normal Blood Pressure 121/91 H Blood Pressure Mean 101 Pulse Ox 97 Oxygen Delivery Method Room Air Room Air Positive well nourished and well developed General Appearance ED: well developed; Negative for pallor HEENT Reports moist mucous membranes HEENT Narrative: No tongue or lip swelling no oral lesions no airway edema or compromise Eyes PERRL and EOMs intact bilaterally Neck supple and no JVD Chest Wall palpation of chest normal Resp normal respiratory effort Resp Narrative: Breath sounds are diminished throughout with diffuse expiratory wheeze and rhonchi in the bilateral bases No nasal flaring retractions or accessory muscle use Cardio regular rate and regular rhythm Extremity normal to inspection Extremity Narrative: No asymmetric edema no pitting edema negative Homans' sign bilaterally Neuro oriented x3, CN's II-XII intact bilaterally and no sensory deficits noted Sensorium / Orientation: alert Motor Exam: strength 5/5 throughout Psych mental status grossly normal Skin no rashes or lesions noted General Skin Exam: Negative for jaundice or pallor MDM MDM MDM Narrative Medical decision making narrative: Patient presented to the ER no acute respiratory distress. He has a past medical history of COPD and reports exposure to dust particles at work. Therefore differential diagnosis is for COPD exacerbation secondary to chemical exposure versus pneumonia versus pneumothorax versus acute blood loss anemia versus electrolyte abnormality. A chest x-ray was obtained which revealed no acute lung pathology and blood work revealed no clinically significant finding. After receiving IV Solu-Medrol as well as albuterol and DuoNeb his breath sounds improved and his work of breathing improved as well. Therefore at this time he is not hypoxic he is not requiring supplemental oxygen he does not show signs of respiratory distress and there is no secondary infection noted therefore he is otherwise safe for discharge. History & Record Review Discussion w/independent historian: Patient Lab Data Attestation: I reviewed the patient's lab results. Labs: Laboratory Results - last 24 hr 02/09/24 23:22 WBC 8.3 RBC 4.66 Hgb 13.9 Hct 41.5 MCV 89.1 MCH 29.8 MCHC 33.5 RDW Std Deviation 41.6 RDW Coeff of Lakhwinder 12.8 Plt Count 366 MPV 9.5 Immature Gran % (Auto) 0.600 Neut % (Auto) 59.1 Lymph % (Auto) 24.5 Pocahontas % (Auto) 8.8 Eos % (Auto) 6.3 H Baso % (Auto) 0.7 Absolute Neuts (auto) 4.9 Absolute Lymphs (auto) 2.02 Nucleated RBC % 0 Sodium 139 Potassium 3.7 Chloride 108 H Carbon Dioxide 23.0 Anion Gap 8 BUN 23 H Creatinine 1.04 Estim Creat Clear Calc 82.91 Est GFR (MDRD) Af Amer 94 Est GFR (MDRD) Non-Af 77 BUN/Creatinine Ratio 22.1 H Glucose 123 H Calcium 9.2 Magnesium 1.7 Radiography Diagnostic Testing: Clinical Impression(s) from Imaging Studies Chest X-Ray 02/09/24 23:34 IMPRESSION: No radiographic evidence of acute cardiopulmonary disease. Electronically Signed: Wendy West MD at 0:20 EDT , 2 view chest x-ray as interpreted by the emergency medicine physician reveals no acute infiltrate pneumothorax or pleural effusion Discharge Plan Triage Chief Complaint: Shortness of Breath ED Provider: Franky West Dx/Rx/DC Orders Clinical Impression: Acute exacerbation of chronic obstructive pulmonary disease, Essential hypertension, Smoker Instructions: COPD: Wheezing and Chest Tightness Prescriptions: New prednisone 20 mg tablet 40 mg PO DAILY 7 Days Qty: 14 0RF No Action albuterol sulfate 2.5 mg /3 mL (0.083 %) solution for nebulization 2.5 mg inhalation Q4H PRN (Reason: shortness of breath or wheezing) Qty: 180 0RF (DME) nebulizers Misc See Rx Instructions .Route Qty: 1 0RF Rx Instructions: As directed (DME) blood pressure monitor Kit See Rx Instructions .Route Qty: 1 0RF Rx Instructions: As directed albuterol sulfate 90 mcg/actuation HFA aerosol inhaler 2 puff inhalation Q6H PRN (Reason: shortness of breath or wheezing) Qty: 8.5 2RF atorvastatin 40 mg tablet 40 mg PO DAILY Qty: 90 1RF bupropion HCl (smoking deter) 150 mg tablet extended release 12 hr 150 mg PO DAILY Qty: 180 1RF ropinirole 0.5 mg tablet 0.5 mg PO QHS Qty: 90 1RF ipratropium-albuterol 0.5 mg-3 mg(2.5 mg base)/3 mL solution for nebulization 3 ml inhalation Q4H PRN (Reason: shortness of breath or wheezing) Qty: 90 0RF Rx Instructions: until breathing returns to target peak flow/parameters Trelegy Ellipta 200-62.5-25 mcg blister with device 1 inh inhalation DAILY Qty: 60 1RF Primary Care Provider: Toshia Somers Referrals: Toshia Somers MD [Primary Care Provider] - Activity Restrictions/Additional Instructions: Please consider wearing a mask at work. That way you will not be exposed to the dust particles which will worsen your COPD and make breathing difficult. Continue your home medications as directed by your doctor and that the prednisone/steroid as directed to reduce further inflammation. Return to the ER should you have any further concerns Print Language: Salvadorean Disposition Disposition: Home, Self Care
[2024-02-10 00:48] VITALS: BP 113/78; PULSE 78; RESP 18; TEMP 36.6; O2SAT 93
== END 2024-02-10 00:58 | disposition home or self-care (01) ==
PROVIDERS: Emergency Provider Emergency Medicine; PCP Internal Medicine; Visit Provider Emergency Medicine
DX: J44.1 Chronic obstructive pulmonary disease with (acute) exacerbation (principal); E78.00 Pure hypercholesterolemia, unspecified; I10 Essential (primary) hypertension; F17.210 Nicotine dependence, cigarettes, uncomplicated; Z57.2 Occupational exposure to dust; Z79.899 Other long term (current) drug therapy
CPT/HCPCS: 71046; 80048; 83735; 85025; 94640; 96374; 99283; A4216

== ENCOUNTER 2024-06-15 10:52 | Emergency (ER) | payer MEDICAID, SELFPAY ==
[2024-06-15 10:53] VITALS: BP 121/86; PULSE 104; RESP 18; TEMP 37; O2SAT 98; BMI 23.7
--- NOTE | 2024-06-15 11:54 | EX.ED.DYSGE1 ---
HPI History of Present Illness Chief Complaint: Rash Detail of Chief Complaint: Pleuritic rash torso and upper extremities Onset/Context/Timing Onset: Weeks (Several weeks) Context: Sudden Onset Timing: Continuous and Waxes and wanes Quality: Pruritic erythematous blanching rash Location: Torso and upper extremities Current Severity: Moderate Maximum Severity: Moderate Worsened by: Itching Relieved by: Nothing Associated Symptoms Associated Symptoms: none Narrative Narrative: Patient is a 59-year-old male. He has history of COPD, mixed hyperlipidemia, essential hypertension and depression with anxiety who presents with pruritic rash. He has been placing Lubriderm cream on his rash. He states he had no improvement. He states he puts his shirt on shortly after applying the cream. He has no other symptoms. Prior similar symptoms: Yes (Dry skin. Friend thought he had shingles.) Recent Illness/Hospitalization: No [facility] Medical History Restless leg Hypercholesteremia Drug abuse Arthritis GERD (gastroesophageal reflux disease) Asthma Smoker Hypertension Alcohol abuse with physiological dependence Acute alcoholic pancreatitis Home Medications ?Medication ?Instructions ?Recorded ?Last Taken ?Type albuterol sulfate 2.5 mg/3 mL 2.5 mg (3 mL) inhalation Q4H PRN 04/09/23 Unknown Rx (0.083 %) solution for nebulization shortness of breath or wheezing #180 mL nebulizers #1 ea 04/09/23 Unknown Rx ipratropium 0.5 mg-albuterol 3 mg 3 ml inhalation Q4H PRN shortness 04/15/23 Unknown Rx (2.5 mg base)/3 mL nebulization of breath or wheezing #90 mL soln albuterol sulfate 90 mcg/actuation 2 puff inhalation Q6H PRN 09/30/23 Unknown Rx aerosol inhaler shortness of breath or wheezing #8.5 grams blood pressure monitor #1 ea 09/30/23 Unknown Rx bupropion HCl (smoking deter) 150 150 mg PO DAILY #180 tabs 09/30/23 Unknown Rx mg tablet,12 hr sustained-release(smoking deterrent) fluticasone fur. 200 mcg-umeclid 1 inh inhalation DAILY #60 ea 11/16/23 Unknown Rx 62.5 mcg-vilant 25 mcg inhalat.powder (Trelegy Ellipta) prednisone 20 mg tablet 40 mg (2 x 20 mg) PO DAILY 7 days 02/10/24 Unknown Rx #14 tabs atorvastatin 40 mg tablet 40 mg PO QHS #90 TABLETS 03/02/24 Unknown Rx ropinirole 0.5 mg tablet 0.5 mg PO QHS #90 TABLETS 03/02/24 Unknown Rx Allergy/AdvReac Type Severity Reaction Status Date / Time No Known Allergies Allergy Verified 06/15/24 10:53 Family History Uncle Cancer lung Father Cancer Surgical History History of hernia surgery History of hip replacement, total Social History household members: other details: sober house living current occupational status: unemployed Smoking Status: Current every day smoker tobacco type: cigarettes Electronic Cigarette Use: not used quit status: considering quitting alcohol intake: former year quit: 2021 substance use type: former substance user Date of last use: 2021, crack/cocaine, amphetamines and opiates what type of physical activity do you participate in: none do you feel safe at home: Yes ROS ROS ED Constitutional Constitutional ED: Denies chills, fever(s), subjective, sweats or weight loss ENT ENT ED: Denies ear pain or rhinorrhea Cardiovascular Cardiovascular: Denies chest pain or palpitations Respiratory/Chest Respiratory/Chest: Denies cough or dyspnea Gastrointestinal Gastrointestinal: Denies diarrhea, nausea or vomiting Integumentary Reports rash Hematologic/Lymphatic Hematologic/Lymphatic: Denies easy bleeding, easy bruising or lymphadenopathy EXAM Physical Exam Const Vital Signs: 06/15/24 10:53 Temperature 98.6 F Temperature Source Oral Pulse Rate 104 H Respiratory Rate 18 Blood Pressure 121/86 H Blood Pressure Mean 97 Pulse Ox 98 Oxygen Delivery Method Room Air Positive well nourished and well developed General Appearance ED: well developed; Negative for cyanotic or diaphoretic HEENT Reports moist mucous membranes Eyes PERRL and EOMs intact bilaterally General Eye ED: Negative for pale conjunctiva or scleral icterus Resp normal respiratory effort Cardio regular rate and regular rhythm Skin Skin Narrative: Patient has dry skin that is pruritic. His rash is consistent with dyshidrotic eczema. Will treat with Eucerin cream. There is no indication for laboratory testing. MDM MDM MDM Narrative Medical decision making narrative: Patient's history and physical is consistent with dry skin. There is no concern for herpes varicella-zoster. This is not a drug reaction. His skin is flaky and irritated. Discharge Plan Triage Chief Complaint: Rash ED Provider: Jayro Hinton Dx/Rx/DC Orders Clinical Impression: Dry skin dermatitis, Essential hypertension, Mixed hyperlipidemia, Anxiety and depression Instructions: ED Psoriasis Prescriptions: No Action albuterol sulfate 2.5 mg /3 mL (0.083 %) solution for nebulization 2.5 mg inhalation Q4H PRN (Reason: shortness of breath or wheezing) Qty: 180 0RF (DME) nebulizers Misc See Rx Instructions .Route Qty: 1 0RF Rx Instructions: As directed (DME) blood pressure monitor Kit See Rx Instructions .Route Qty: 1 0RF Rx Instructions: As directed albuterol sulfate 90 mcg/actuation HFA aerosol inhaler 2 puff inhalation Q6H PRN (Reason: shortness of breath or wheezing) Qty: 8.5 2RF bupropion HCl (smoking deter) 150 mg tablet extended release 12 hr 150 mg PO DAILY Qty: 180 1RF prednisone 20 mg tablet 40 mg PO DAILY 7 Days Qty: 14 0RF ipratropium-albuterol 0.5 mg-3 mg(2.5 mg base)/3 mL solution for nebulization 3 ml inhalation Q4H PRN (Reason: shortness of breath or wheezing) Qty: 90 0RF Rx Instructions: until breathing returns to target peak flow/parameters Trelegy Ellipta 200-62.5-25 mcg blister with device 1 inh inhalation DAILY Qty: 60 1RF atorvastatin 40 mg tablet 40 mg PO QHS Qty: 90 0RF ropinirole 0.5 mg tablet 0.5 mg PO QHS Qty: 90 0RF Primary Care Provider: Toshia Somers Referrals: Toshia Somers MD [Primary Care Provider] - 1 Week if not improving Activity Restrictions/Additional Instructions: Apply Eucerin cream 3-4 times a day. Do not put on a shirt or any clothing for 15 to 30 minutes after you apply the lotion. Print Language: Kittitian Disposition Disposition: Home, Self Care
== END 2024-06-15 12:03 | disposition home or self-care (01) ==
PROVIDERS: Emergency Provider Emergency Medicine; PCP Internal Medicine; Visit Provider Emergency Medicine
DX: L85.3 Xerosis cutis (principal); J44.9 Chronic obstructive pulmonary disease, unspecified; F41.9 Anxiety disorder, unspecified; I10 Essential (primary) hypertension; F32.A Depression, unspecified; F17.210 Nicotine dependence, cigarettes, uncomplicated; E78.2 Mixed hyperlipidemia; K21.9 Gastro-esophageal reflux disease without esophagitis
CPT/HCPCS: 99282

== ENCOUNTER → 2024-10-06 | Outpatient (CLI) | payer MEDICAID, SELFPAY ==
[2024-10-06 12:23] LABS: Absolute Lymphocyte Count 2.06 X10^3/uL (0.83-4.51); Absolute Neutrophil Count 4.9 X10^3/uL (2.0-7.7); Basophil# 0.06 X10^3/uL; Basophil% 0.7 % (0-1); Eosinophil# 0.54 X10^3/uL; Eosinophils% 6.5 % (0-5); Hematocrit 42.4 % (40-54); Hemoglobin 14.2 g/dL (13.0-16.5); Lymphocyte # 2.06 X10^3/ul (0.83-4.51); Lymphocyte % 24.8 % (19-41); Mean Corp Hgb Conc 33.5 g/dL (32-36); Mean Corpuscular Hgb 30.3 pg (27.0-32.0); Mean Corpuscular Volume 90.4 fL (80-94); Monocyte# 0.72 X10^3/uL; Monocyte% 8.7 % (0-10); NRBC Flagged by Analyzer 0 % (0-5); Neutrophil # 4.88 X10^3/uL (2.7-7.7); Neutrophil % 58.9 % (47-70); Platelet Count 325 K/mm3 (150-450); RBC Distribution Width CV 13.2 % (11.6-14.6); RBC Distribution Width SD 43.2 fl (35.1-43.9); Red Blood Count 4.69 M/mm3 (4.6-6.2); White Blood Count 8.3 K/mm3 (4.4-11.0)
[2024-10-06 14:09] LABS: ALB/GLOB Ratio 1.5 RATIO (0.9-2.4); AST(SGOT) 25 U/L (<=37); Alanine Aminotransfer ALT/SGPT 30 U/L (<=46); Albumin, Serum 4.2 g/dL (3.4-4.8); Alkaline Phosphatase 87 U/L (40-129); Anion Gap 12 (5-15); BUN 17 mg/dL (4-19); BUN/Creat Ratio 18.4 RATIO (10-20); Carbon Dioxide 22.4 mmol/L (21.0-32.0); Chloride 106 mmol/L (98-108); Cholesterol 174 mg/dL (<=200); EST Glomerular Filtration Rate 98 (>60); Free T3 3.6 pg/mL (2.18-3.98); Globulin 2.9 g/dL (2.2-4.2); Glucose 97 mg/dL (70-99); High Density Lipoprotein 39 mg/dL; Low Density Lipoprotein Calc. 104 mg/dL; Potassium 4.2 mmol/L (3.3-5.1); Protein, Total 7.1 g/dL (5.9-8.4); Sodium Level 140 mmol/L (133-145); Thyroid Stim Hormone (TSH) 0.618 uIU/mL (0.300-4.200); Total Bilirubin 0.26 mg/dL (0.00-1.30); Triglycerides 158 mg/dL; Very Low Density Lipoprotein 32 mg/dL (5-40); Vitamin B12 488 pg/mL (180-914); Vitamin D,25 Hydroxy 15.6 ng/mL (30-100); cholesterol:hdl ratio screen 4.48
== END | disposition home or self-care (01) ==
LOC: BIMLAB 08:20
PROVIDERS: PCP Internal Medicine
DX: R53.83 Other fatigue (principal); Z79.899 Other long term (current) drug therapy
CPT/HCPCS: 36415; 80053; 80061; 82306; 82607; 84439; 84443; 84481; 85025

== ENCOUNTER → 2024-12-14 | Outpatient (CLI) | payer MEDICAID, SELFPAY ==
--- NOTE | 2024-12-14 11:45 | RAD_ITS ---
PROCEDURE: LUMBAR SPINE 2 OR 3 VIEWS 12/14/2024 REASON FOR EXAM: RADICULOPATHY, LUMBAR REGION TECHNIQUE: 2 view(s) of the lumbar spine COMPARISON: 11/02/2024. FINDINGS: Mild osteopenia. Reverse S shaped scoliosis. Mild benign chronic compression deformities of the lower thoracic and upper lumbar vertebral bodies. Increased kyphosis at the level of the thoracolumbar junction. Exaggerated lumbar lordosis. There are diffuse spondylotic changes. Findings are demonstrated to by diffuse disc space narrowing, osteophyte formation and degenerative endplate sclerosis. There is diffuse facet joint arthropathy with secondary bilateral neural foramina narrowing. No acute fracture or dislocation is seen. No aggressive lytic or blastic bony lesion is noted. RAD/Lumbar Spine 2 or 3 Views IMPRESSION: No evidence for acute abnormality. Reading [facility] [id number]
== END | disposition home or self-care (01) ==
LOC: RAD 11:41
PROVIDERS: PCP Internal Medicine; Referring Provider Anesthesiology Pain Medicine; Visit Provider Anesthesiology Pain Medicine
DX: M54.16 Radiculopathy, lumbar region (principal)
CPT/HCPCS: 72100

== ENCOUNTER → 2024-12-15 | Outpatient (CLI) | payer MEDICAID, SELFPAY | END | disposition home or self-care (01) | LOC: BIMLAB 09:03 | PROVIDERS: PCP Internal Medicine; Referring Provider Internal Medicine; Visit Provider Internal Medicine | DX: E55.9 Vitamin D deficiency, unspecified (principal) | CPT/HCPCS: 36415; 82306 ==

== ENCOUNTER 2025-04-01 12:34 | Emergency (ER) | payer MEDICAID, SELFPAY ==
[2025-04-01 12:34] VITALS: BP 141/96; PULSE 96; RESP 18; TEMP 36.3; O2SAT 96; BMI 25.8
--- NOTE | 2025-04-01 13:01 | ED.VIS.LOWEX ---
HPI History of Present Illness Chief Complaint: Lower Extremity Injury Narrative Narrative: 60-year-old male past medical history of severe osteoarthritis of the right hip, chronic pain presents with continued pain of his right hip that he has had for years. He states he is trying to get on SSI for disability and also get follow-up with orthopedics. No recent falls. He states he saw his primary care provider yesterday who switched him to celecoxib 50 mg twice a day. He was told that it takes some time for it to become effective. He is to take ibuprofen 800 mg which was effective in treating his pain but was told by his primary care provider that he cannot take that for extended periods of time, hence they switched him. He presents because of continued pain in his right hip. He states he has problems with his bilateral knees as well. [facility] Medical History Restless leg Hypercholesteremia Drug abuse Arthritis GERD (gastroesophageal reflux disease) Asthma Smoker Hypertension Alcohol abuse with physiological dependence Acute alcoholic pancreatitis Home Medications Medication Instructions Recorded Last Taken Type nebulizers #1 ea 04/09/23 Unknown Rx blood pressure monitor #1 ea 09/30/23 Unknown Rx bupropion HCl 150 mg 24 hr tablet, 150 mg PO QDAY 10/26/24 Unknown History extended release cholecalciferol (vitamin D3) 1,250 1,250 mcg PO QWEEK #8 caps 10/26/24 Unknown Rx mcg (50,000 unit) capsule lamotrigine 25 mg tablet mg PO 10/26/24 Unknown History acetaminophen 500 mg capsule 500 mg PO Q6H PRN pain #120 caps 11/17/24 Unknown Rx albuterol sulfate 2.5 mg/3 mL 2.5 mg (3 mL) inhalation Q4H PRN 11/17/24 Unknown Rx (0.083 %) solution for nebulization shortness of breath or wheezing #180 mL amoxicillin 875 mg-potassium 1 tab PO BID #14 tabs 12/22/24 Unknown Rx clavulanate 125 mg tablet albuterol sulfate 90 mcg/actuation 2 puff inhalation Q6H PRN 01/25/25 Unknown Rx aerosol inhaler shortness of breath or wheezing #8.5 grams cholecalciferol (vitamin D3) 25 25 mcg PO QDAY #30 caps 02/07/25 Unknown Rx mcg (1,000 unit) capsule atorvastatin 40 mg tablet 40 mg PO QHS #90 TABLETS 03/07/25 Unknown Rx ibuprofen 800 mg tablet 800 mg PO Q8H PRN pain #30 tabs 03/10/25 Unknown Rx celecoxib 50 mg capsule PO 04/01/25 Unknown History cholecalciferol (vitamin D3) 25 25 mcg PO DAILY 04/01/25 Unknown History mcg (1,000 unit) tablet naltrexone microspheres 380 mg 380 mg IM QMONTH 04/01/25 Unknown History intramuscular suspension,extended release (Vivitrol) omeprazole 20 mg capsule,delayed 20 mg PO DAILY 04/01/25 Unknown History release tiotropium bromide 18 mcg capsule 1 cap inhalation DAILY 04/01/25 Unknown History with inhalation device (Spiriva with HandiHaler) Allergy/AdvReac Type Severity Reaction Status Date / Time No Known Allergies Allergy Verified 04/01/25 12:34 Family History Uncle Cancer lung Father Cancer Surgical History History of hernia surgery History of hip replacement, total Social History household members: other details: sober house living current occupational status: employed 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 Denies any recent falls. No fevers or chills, no new symptoms. EXAM Physical Exam Narrative Exam Narrative: Afebrile. Vital signs noted. Nontoxic-appearing. Cardiovascular examination feels regular rate and rhythm. Lungs clear to auscultation bilaterally. Abdomen is soft and nontender without guarding or rebound. Positive bowel sounds. He has limited range of motion of his right hip secondary to pain but appears neurovasc intact distally to his right lower extremity. Const Vital Signs: 04/01/25 12:34 04/01/25 13:15 Temperature 97.4 F L 98 F Temperature Source Temporal Pulse Rate 96 81 Respiratory Rate 18 16 Blood Pressure 141/96 H 118/57 L Blood Pressure Mean 111 77 Pulse Ox 96 95 Oxygen Delivery Method Room Air MDM MDM MDM Narrative Medical decision making narrative: I had lengthy discussion with the patient. I offered to x-ray his right hip but he has not had any recent falls and this is the same pain that he has had previously so he declined them. He states he had multiple x-rays in the past. He was concerned about analgesia. I also offered to write him for ibuprofen 800 mg in the meantime to get him through the weekend but he also declined this. Of note, he states he has had problems with opiate pain medications in the past and does not want any sort of analgesia of that nature. I discussed with him intramuscular injection of Toradol. He will be given 30 mg intramuscularly in the shoulder as he stated he did not want an injection in his right hip/buttocks. He was told that he should still continue his celecoxib and follow-up with his primary care provider. Return instructions to the emergency department were reviewed. Disposition is discharged home in stable condition. History & Record Review Discussion w/independent historian: Patient Additional record(s) reviewed:: Prior ED visit Discharge Plan Triage Chief Complaint: Lower Extremity Injury ED Provider: Familia Merrill Dx/Rx/DC Orders Clinical Impression: Chronic pain of right hip, Osteoarthritis of right hip Instructions: ED Arthralgia, ED Chronic Pain Prescriptions: No Action (DME) nebulizers Misc See Rx Instructions .Route Qty: 1 0RF Rx Instructions: As directed (DME) blood pressure monitor Kit See Rx Instructions .Route Qty: 1 0RF Rx Instructions: As directed lamotrigine 25 mg tablet PO bupropion HCl 150 mg tablet extended release 24 hr 150 mg PO QDAY cholecalciferol (vitamin D3) 1,250 mcg (50,000 unit) capsule 1,250 mcg PO QWEEK Qty: 8 0RF amoxicillin-pot clavulanate 875-125 mg tablet 1 tab PO BID Qty: 14 0RF omeprazole 20 mg capsule,delayed release(DR/EC) 20 mg PO DAILY tiotropium bromide [Spiriva with HandiHaler] 18 mcg capsule, w/inhalation device 1 cap inhalation DAILY Vivitrol 380 mg suspension,extended rel recon 380 mg IM QMONTH cholecalciferol (vitamin D3) 25 mcg (1,000 unit) tablet 25 mcg PO DAILY celecoxib 50 mg capsule PO acetaminophen 500 mg capsule 500 mg PO Q6H PRN (Reason: pain) Qty: 120 0RF albuterol sulfate 2.5 mg /3 mL (0.083 %) solution for nebulization 2.5 mg inhalation Q4H PRN (Reason: shortness of breath or wheezing) Qty: 180 0RF albuterol sulfate 90 mcg/actuation HFA aerosol inhaler 2 puff inhalation Q6H PRN (Reason: shortness of breath or wheezing) Qty: 8.5 0RF cholecalciferol (vitamin D3) 25 mcg (1,000 unit) capsule 25 mcg PO QDAY Qty: 30 2RF atorvastatin 40 mg tablet 40 mg PO QHS Qty: 90 0RF ibuprofen 800 mg tablet 800 mg PO Q8H PRN (Reason: pain) Qty: 30 0RF Primary Care Provider: Jesse Marti Referrals: Jesse Marti DO [Primary Care Provider, Medical] - 3-5 Days if not improving Activity Restrictions/Additional Instructions: Continue your celecoxib as previously directed. You received a shot of an anti-inflammatory today. No narcotics were given. Follow-up with your primary care provider. Print Language: Lithuanian Disposition Disposition: Home, Self Care Discharge Date/Time: 04/01/25 13:33
[2025-04-01] MEDS: Ketorolac 30 MG/ML Syringe IM (13:10)
[2025-04-01 13:15] VITALS: BP 118/57; PULSE 81; RESP 16; TEMP 36.6; O2SAT 95
== END 2025-04-01 13:33 | disposition home or self-care (01) ==
PROVIDERS: Emergency Provider Emergency Medicine; Visit Provider Emergency Medicine
DX: M16.11 Unilateral primary osteoarthritis, right hip (principal); E78.00 Pure hypercholesterolemia, unspecified; F17.210 Nicotine dependence, cigarettes, uncomplicated; G89.29 Other chronic pain; Z79.1 Long term (current) use of non-steroidal anti-inflammatories (NSAID); K21.9 Gastro-esophageal reflux disease without esophagitis; J45.909 Unspecified asthma, uncomplicated; I10 Essential (primary) hypertension
CPT/HCPCS: 96372; 99282

== ENCOUNTER 2025-04-13 10:47 | Emergency (ER) | payer MEDICAID, SELFPAY ==
[2025-04-13 10:48] VITALS: BP 124/89; PULSE 79; RESP 16; TEMP 36.2; O2SAT 97; BMI 25.9
--- NOTE | 2025-04-13 11:07 | ED.VIS.LOWEX ---
HPI History of Present Illness HPI Narrative: Patient presents with pain in his right hip that has been getting worse since yesterday. Patient states he has osteoarthritis in his right hip. Patient states he is in the process of trying to get a replacement of his right hip. Patient has had a left hip replacement in the past. Patient also states he needs total knee replacements bilaterally. Patient describes his pain as sharp. Patient states it is worse when he goes up steps. Patient states he was here recently and was given an injection of Toradol. Patient states this helped for several days. Patient denies any paresthesias or weakness. Patient denies any trauma or injury. Chief Complaint: Lower Extremity Injury Informant: patient Onset/Context/Timing Onset: Yesterday Context: Gradual Onset Timing: Continuous Quality of Pain: Sharp Location: Right hip Worsened by: Going up steps Relieved by: Toradol Associated Symptoms Associated Symptoms: Negative for Parasthesia, Weakness or Loss of Funtion [facility] Medical History Restless leg Hypercholesteremia Drug abuse Arthritis GERD (gastroesophageal reflux disease) Asthma Smoker Hypertension Alcohol abuse with physiological dependence Acute alcoholic pancreatitis Home Medications ?Medication ?Instructions ?Recorded ?Last Taken ?Type nebulizers #1 ea 04/09/23 Unknown Rx blood pressure monitor #1 ea 09/30/23 Unknown Rx bupropion HCl 150 mg 24 hr tablet, 150 mg PO QDAY 10/26/24 Unknown History extended release cholecalciferol (vitamin D3) 1,250 1,250 mcg PO QWEEK #8 caps 10/26/24 Unknown Rx mcg (50,000 unit) capsule lamotrigine 25 mg tablet mg PO 10/26/24 Unknown History acetaminophen 500 mg capsule 500 mg PO Q6H PRN pain #120 caps 11/17/24 Unknown Rx albuterol sulfate 2.5 mg/3 mL 2.5 mg (3 mL) inhalation Q4H PRN 11/17/24 Unknown Rx (0.083 %) solution for nebulization shortness of breath or wheezing #180 mL amoxicillin 875 mg-potassium 1 tab PO BID #14 tabs 12/22/24 Unknown Rx clavulanate 125 mg tablet albuterol sulfate 90 mcg/actuation 2 puff inhalation Q6H PRN 01/25/25 Unknown Rx aerosol inhaler shortness of breath or wheezing #8.5 grams cholecalciferol (vitamin D3) 25 25 mcg PO QDAY #30 caps 02/07/25 Unknown Rx mcg (1,000 unit) capsule atorvastatin 40 mg tablet 40 mg PO QHS #90 TABLETS 03/07/25 Unknown Rx ibuprofen 800 mg tablet 800 mg PO Q8H PRN pain #30 tabs 03/10/25 Unknown Rx celecoxib 50 mg capsule PO 04/01/25 Unknown History cholecalciferol (vitamin D3) 25 25 mcg PO DAILY 04/01/25 Unknown History mcg (1,000 unit) tablet naltrexone microspheres 380 mg 380 mg IM QMONTH 04/01/25 Unknown History intramuscular suspension,extended release (Vivitrol) omeprazole 20 mg capsule,delayed 20 mg PO DAILY 04/01/25 Unknown History release tiotropium bromide 18 mcg capsule 1 cap inhalation DAILY 04/01/25 Unknown History with inhalation device (Spiriva with HandiHaler) Allergy/AdvReac Type Severity Reaction Status Date / Time No Known Allergies Allergy Verified 04/13/25 10:50 Family History Uncle Cancer lung Father Cancer Surgical History History of hernia surgery History of hip replacement, total Social History household members: other details: sober house living current occupational status: employed 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 [employer] Smoking Status: Current every day smoker tobacco type: cigarettes Electronic Cigarette Use: not used quit status: considering quitting alcohol intake: former year quit: 2021 substance use type: former substance user Date of last use: 2021, crack/cocaine, amphetamines and opiates what type of physical activity do you participate in: none do you feel safe at home: Yes ROS ROS ED Constitutional Constitutional ED: Denies chills or fever(s) Eyes Eyes: Denies blurry vision or change in vision ENT ENT ED: Denies rhinorrhea or sore throat Cardiovascular Cardiovascular: Denies chest pain or palpitations Respiratory/Chest Respiratory/Chest: Reports cough; Denies dyspnea Gastrointestinal Gastrointestinal: Denies nausea or vomiting Genitourinary Genitourinary ED: Denies dysuria or hematuria Musculoskeletal Musculoskeletal: Denies back pain or neck pain Integumentary Denies abscess or rash Neurologic Neurologic: Denies headache(s) or weakness Allergic/Immunologic Allergic/Immunologic ED: Denies mouth swelling or urticaria EXAM Physical Exam Const Vital Signs: 04/13/25 10:48 Temperature 97.2 F L Temperature Source Temporal Pulse Rate 79 Respiratory Rate 16 Blood Pressure 124/89 H Blood Pressure Mean 100 Pulse Ox 97 Oxygen Delivery Method Room Air Positive well nourished and well developed General Appearance ED: well developed and NAD HEENT Reports moist mucous membranes Neck full ROM and supple Extremity Extremity Narrative: There is tenderness over the lateral aspect of the right hip. There is no obvious deformity noted. There are some mild pain with internal and external rotation. Strength is 5/5 bilateral in the lower extremities. There are no sensory deficits noted. Pedal pulses are equal bilaterally. Neuro oriented x3, CN's II-XII intact bilaterally, moves all extremities and no sensory deficits noted Sensorium / Orientation: alert Motor Exam: strength 5/5 throughout Psych mental status grossly normal MDM MDM MDM Narrative Medical decision making narrative: Patient denies any direct trauma or injury. My suspicion for acute fracture is low. Patient was given injection of Toradol here. Patient was instructed to follow-up with his primary care physician in 5 to 7 days for further evaluation. Patient was instructed use ice to the area. Patient understood and was agreeable with the plan. All questions were answered. Discharge Plan Triage Chief Complaint: Lower Extremity Injury ED Provider: Walter Galarza Dx/Rx/DC Orders Clinical Impression: Acute pain of right hip, Tobacco abuse Instructions: ED Arthralgia Prescriptions: No Action (DME) nebulizers Misc See Rx Instructions .Route Qty: 1 0RF Rx Instructions: As directed (DME) blood pressure monitor Kit See Rx Instructions .Route Qty: 1 0RF Rx Instructions: As directed lamotrigine 25 mg tablet PO bupropion HCl 150 mg tablet extended release 24 hr 150 mg PO QDAY cholecalciferol (vitamin D3) 1,250 mcg (50,000 unit) capsule 1,250 mcg PO QWEEK Qty: 8 0RF amoxicillin-pot clavulanate 875-125 mg tablet 1 tab PO BID Qty: 14 0RF omeprazole 20 mg capsule,delayed release(DR/EC) 20 mg PO DAILY tiotropium bromide [Spiriva with HandiHaler] 18 mcg capsule, w/inhalation device 1 cap inhalation DAILY Vivitrol 380 mg suspension,extended rel recon 380 mg IM QMONTH cholecalciferol (vitamin D3) 25 mcg (1,000 unit) tablet 25 mcg PO DAILY celecoxib 50 mg capsule PO acetaminophen 500 mg capsule 500 mg PO Q6H PRN (Reason: pain) Qty: 120 0RF albuterol sulfate 2.5 mg /3 mL (0.083 %) solution for nebulization 2.5 mg inhalation Q4H PRN (Reason: shortness of breath or wheezing) Qty: 180 0RF albuterol sulfate 90 mcg/actuation HFA aerosol inhaler 2 puff inhalation Q6H PRN (Reason: shortness of breath or wheezing) Qty: 8.5 0RF cholecalciferol (vitamin D3) 25 mcg (1,000 unit) capsule 25 mcg PO QDAY Qty: 30 2RF atorvastatin 40 mg tablet 40 mg PO QHS Qty: 90 0RF ibuprofen 800 mg tablet 800 mg PO Q8H PRN (Reason: pain) Qty: 30 0RF Primary Care Provider: Jesse Marti Referrals: Jesse Marti DO [Primary Care Provider, Medical] - 5-7 Days Print Language: Guamanian Disposition Disposition: Home, Self Care
[2025-04-13 12:02] VITALS: BP 131/95; PULSE 75; RESP 16; TEMP 36.4; O2SAT 95
== END 2025-04-13 12:06 | disposition home or self-care (01) ==
PROVIDERS: Emergency Provider Emergency Medicine; Visit Provider Emergency Medicine
DX: M25.551 Pain in right hip (principal); E78.00 Pure hypercholesterolemia, unspecified; K21.9 Gastro-esophageal reflux disease without esophagitis; I10 Essential (primary) hypertension; J45.909 Unspecified asthma, uncomplicated; F17.210 Nicotine dependence, cigarettes, uncomplicated
CPT/HCPCS: 96372; 99282

== ENCOUNTER 2025-04-18 07:26 | Emergency (ER) | payer MEDICAID, SELFPAY ==
[2025-04-18 07:27] VITALS: BP 140/101; PULSE 90; RESP 16; TEMP 36; O2SAT 97; BMI 25.7
--- NOTE | 2025-04-18 07:39 | EX.ED.DYSGE1 ---
HPI History of Present Illness Chief Complaint: Other, Pain/Inj Narrative Narrative: Patient is a 60-year-old male with past medical history of previous alcohol abuse, GERD, drug abuse, hypercholesteremia who presents to the emergency department with a chief complaint of back pain and bilateral knee pain. He states that his physician prescribed him Toradol shots however his insurance is requesting a second opinion therefore they will not pay for this. He states that he was in a lot of pain this morning when he tried to get up and out of bed prompting him to come here for a Toradol shot. He states that this helps him significantly and is requesting 1 today. Patient denies any fevers he states that he has been urinating normally from self having normal bowel movements. Denies any new trauma or injuries. He states that he has severe arthritis and states that his right hip and both knees replaced. [facility] Medical History Restless leg Hypercholesteremia Drug abuse Arthritis GERD (gastroesophageal reflux disease) Asthma Smoker Hypertension Alcohol abuse with physiological dependence Acute alcoholic pancreatitis Home Medications ?Medication ?Instructions ?Recorded ?Last Taken ?Type nebulizers #1 ea 04/09/23 Unknown Rx blood pressure monitor #1 ea 09/30/23 Unknown Rx bupropion HCl 150 mg 24 hr tablet, 150 mg PO QDAY 10/26/24 Unknown History extended release cholecalciferol (vitamin D3) 1,250 1,250 mcg PO QWEEK #8 caps 10/26/24 Unknown Rx mcg (50,000 unit) capsule lamotrigine 25 mg tablet mg PO 10/26/24 Unknown History acetaminophen 500 mg capsule 500 mg PO Q6H PRN pain #120 caps 11/17/24 Unknown Rx albuterol sulfate 2.5 mg/3 mL 2.5 mg (3 mL) inhalation Q4H PRN 11/17/24 Unknown Rx (0.083 %) solution for nebulization shortness of breath or wheezing #180 mL amoxicillin 875 mg-potassium 1 tab PO BID #14 tabs 12/22/24 Unknown Rx clavulanate 125 mg tablet albuterol sulfate 90 mcg/actuation 2 puff inhalation Q6H PRN 01/25/25 Unknown Rx aerosol inhaler shortness of breath or wheezing #8.5 grams cholecalciferol (vitamin D3) 25 25 mcg PO QDAY #30 caps 02/07/25 Unknown Rx mcg (1,000 unit) capsule atorvastatin 40 mg tablet 40 mg PO QHS #90 TABLETS 03/07/25 Unknown Rx ibuprofen 800 mg tablet 800 mg PO Q8H PRN pain #30 tabs 03/10/25 Unknown Rx celecoxib 50 mg capsule PO 04/01/25 Unknown History cholecalciferol (vitamin D3) 25 25 mcg PO DAILY 04/01/25 Unknown History mcg (1,000 unit) tablet naltrexone microspheres 380 mg 380 mg IM QMONTH 04/01/25 Unknown History intramuscular suspension,extended release (Vivitrol) omeprazole 20 mg capsule,delayed 20 mg PO DAILY 04/01/25 Unknown History release tiotropium bromide 18 mcg capsule 1 cap inhalation DAILY 04/01/25 Unknown History with inhalation device (Spiriva with HandiHaler) ketorolac 10 mg tablet 10 mg PO Q8H PRN pain 5 days #15 04/18/25 Unknown Rx tabs Allergy/AdvReac Type Severity Reaction Status Date / Time No Known Allergies Allergy Verified 04/18/25 07:28 Family History Uncle Cancer lung Father Cancer Surgical History History of hernia surgery History of hip replacement, total Social History household members: other details: sober house living current occupational status: employed 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 [employer] Smoking Status: Current every day smoker tobacco type: cigarettes Electronic Cigarette Use: not used quit status: considering quitting alcohol intake: former year quit: 2021 substance use type: former substance user Date of last use: 2021, crack/cocaine, amphetamines and opiates what type of physical activity do you participate in: none do you feel safe at home: Yes ROS ROS ED ROS Narrative Constitutional denies any fevers or chills Cardiovascular: Denies chest pain Respiratory: Denies shortness of breath Abdomen: Denies nausea vomit diarrhea : Denies urinary symptoms Neurological: Denies any numbness, tingling Musculoskeletal: Complains of back pain rating to both knees and bilateral knee pain as well as right hip pain Skin: Denies any rashes or lesions EXAM Physical Exam Narrative Exam Narrative: General: Patient was lying in bed rest comfortably did not appear to be in acute distress Head: Atraumatic, normocephalic Eyes: PERRL bilaterally, EOMI bilaterally, no conjunctival injection noted Neck: Soft, supple, trachea midline Cardiovascular: Regular rate and rhythm no murmurs gallops rubs noted Abdomen: Soft, nondistended, nontender to palpation Extremities: Patient's strength in the bilateral lower extremities is limited secondary to pain, +5/5 strength noted in the bilateral upper extremities Neurological: Patient follow commands knew that he was at [facility] year is 2024. NIH of 0 GCS 15 no saddle anesthesia noted Skin: Warm, dry, intact no rashes or lesions noted Const Vital Signs: 04/18/25 07:27 04/18/25 07:33 Temperature 96.8 F L Temperature Source Temporal Pulse Rate 90 Respiratory Rate 16 Respiratory Pattern Normal Blood Pressure 140/101 H Blood Pressure Mean 114 Pulse Ox 97 Oxygen Delivery Method Room Air MDM MDM MDM Narrative Medical decision making narrative: Patient is a 60-year-old male who presents to the emergency department chief complaint of bilateral knee and right hip pain as well as back pain. He states he is here for Toradol shot. On the differential diagnose includes but to arthritis, compression fracture although I have low suspicion for this as he has no trauma. Patient be given Toradol and be reevaluated. On reevaluation the patient is feeling better he would like to go home at this point in time. Patient will given prescription for oral Toradol until the insurance issue can be resolved. He is encouraged return with worsening symptoms or any concerns otherwise he is to follow-up with In outpatient setting. All question concerns answered he is discharged home in stable condition. Discharge Plan Triage Chief Complaint: Other, Pain/Inj ED Provider: Cuate Copeland Dx/Rx/DC Orders Clinical Impression: Chronic back pain, Bilateral knee pain, Hypertension Prescriptions: New ketorolac 10 mg tablet 10 mg PO Q8H PRN (Reason: pain) 5 Days Qty: 15 0RF Rx Instructions: maximum total duration of 5 days from all oral, intranasal, or parenteral formulations No Action (DME) nebulizers Misc See Rx Instructions .Route Qty: 1 0RF Rx Instructions: As directed (DME) blood pressure monitor Kit See Rx Instructions .Route Qty: 1 0RF Rx Instructions: As directed lamotrigine 25 mg tablet PO bupropion HCl 150 mg tablet extended release 24 hr 150 mg PO QDAY cholecalciferol (vitamin D3) 1,250 mcg (50,000 unit) capsule 1,250 mcg PO QWEEK Qty: 8 0RF amoxicillin-pot clavulanate 875-125 mg tablet 1 tab PO BID Qty: 14 0RF omeprazole 20 mg capsule,delayed release(DR/EC) 20 mg PO DAILY tiotropium bromide [Spiriva with HandiHaler] 18 mcg capsule, w/inhalation device 1 cap inhalation DAILY Vivitrol 380 mg suspension,extended rel recon 380 mg IM QMONTH cholecalciferol (vitamin D3) 25 mcg (1,000 unit) tablet 25 mcg PO DAILY celecoxib 50 mg capsule PO acetaminophen 500 mg capsule 500 mg PO Q6H PRN (Reason: pain) Qty: 120 0RF albuterol sulfate 2.5 mg /3 mL (0.083 %) solution for nebulization 2.5 mg inhalation Q4H PRN (Reason: shortness of breath or wheezing) Qty: 180 0RF albuterol sulfate 90 mcg/actuation HFA aerosol inhaler 2 puff inhalation Q6H PRN (Reason: shortness of breath or wheezing) Qty: 8.5 0RF cholecalciferol (vitamin D3) 25 mcg (1,000 unit) capsule 25 mcg PO QDAY Qty: 30 2RF atorvastatin 40 mg tablet 40 mg PO QHS Qty: 90 0RF ibuprofen 800 mg tablet 800 mg PO Q8H PRN (Reason: pain) Qty: 30 0RF Primary Care Provider: Jesse Marti Referrals: Jesse Marti DO [Primary Care Provider, Medical] Activity Restrictions/Additional Instructions: Follow-up with your doctor in the outpatient setting. Return with worsening symptoms or any concerns. Toradol orally was sent to your pharmacy. Do not take any other NSAID with this. Ensure you do not take this on an empty stomach Print Language: Croatian Disposition Disposition: Home, Self Care
[2025-04-18] MEDS: Ketorolac 30 MG/ML Syringe IM (08:31)
== END 2025-04-18 09:54 | disposition home or self-care (01) ==
PROVIDERS: Emergency Provider Emergency Medicine; Visit Provider Emergency Medicine
DX: G89.29 Other chronic pain (principal); F17.210 Nicotine dependence, cigarettes, uncomplicated; E78.00 Pure hypercholesterolemia, unspecified; M25.561 Pain in right knee; M25.562 Pain in left knee; I10 Essential (primary) hypertension; K21.9 Gastro-esophageal reflux disease without esophagitis; M54.9 Dorsalgia, unspecified
CPT/HCPCS: 96372; 99283